=== PATIENT | male | born 1985 | race Caucasian/White ===

== ENCOUNTER 2019-10-15 14:47 | Emergency (ER) | payer SELFPAY ==
[2019-10-15 14:54] VITALS: BP 180/93
--- NOTE | 2019-10-15 15:04 | ER Document Report ---
HPI - HPI Time Seen by Provider: 10/15/19 14:59 Notes: 34-year-old male patient presents emergency department complaints of scalp laceration. Patient reports he was loading things into his vehicle when he closed the back nayak and it slammed into his head. He denies any loss of consciousness. Denies any nausea or vomiting. He reports this occurred just prior to arrival. He has not taken any medications. - ROS Systems Reviewed and Negative: Yes All other systems reviewed and negative - DERM Skin Problems: Laceration Past Medical History - General Information source: Patient - Social History Smoking Status: Never Smoker Frequency of alcohol use: None Drug Abuse: None Family History: Reviewed & Not Pertinent - Medical History Medical History: Negative Surgical Hx: Negative - Immunizations Immunizations up to date: Yes Vertical Provider Document - CONSTITUTIONAL Notes: PHYSICAL EXAMINATION: GENERAL: Well-appearing, well-nourished and in no acute distress. HEAD: Atraumatic, normocephalic. EYES: Pupils equal round extraocular movements intact, conjunctiva are normal. ENT: Nares patent NECK: Normal range of motion LUNGS: No respiratory distress Musculoskeletal: Normal range of motion NEUROLOGICAL: Normal speech, normal gait. PSYCH: Normal mood, normal affect. SKIN: 1 cm laceration to anterior right scalp. No active bleeding noted. Wound approximates well. Course - Re-evaluation Re-evalutation: Patient has no red flag signs for serious head injury. He has not had any nausea or vomiting. He has not passed out and his mental status is normal. His laceration was closed with edwar. He tolerated this well. He understands ED return precautions. Tdap up-to-date. - Vital Signs Vital signs: Temp Pulse Resp BP Pulse Ox 98.0 F 91 18 180/93 H 99 10/15/19 14:52 10/15/19 14:52 10/15/19 14:52 10/15/19 14:52 10/15/19 14:52 Procedures - Laceration/Wound Repair Scalp laceration Wound length (cm): 1 Wound's Depth, Shape: Superficial Wound Repaired With: Edwar - x2 Post-procedure NV exam normal: Yes Complications: No Discharge - Discharge Clinical Impression: Laceration of scalp Qualifiers: Encounter type: initial encounter Qualified Code(s): S01.01XA - Laceration without foreign body of scalp, initial encounter Condition: Stable Disposition: HOME, SELF-CARE Additional Instructions: You will need to have the edwar removed in 7 days. You may do this at your primary care provider's office or you may return to the emergency department. Please watch for serious signs of head injury to include projectile vomiting, altered mental status or you pass out. Please return if any of these occur.
== END 2019-10-15 15:12 | disposition home or self-care (01) ==
LOC: ER 14:47
PROC: 0HQ0XZZ Repair Scalp Skin, External Approach (ICD-10-PCS; principal; 2019-10-15)
DX: S01.01XA Laceration without foreign body of scalp, initial encounter (principal); W22.8XXA Striking against or struck by other objects, initial encounter
CPT/HCPCS: 99282

== ENCOUNTER 2020-02-18 12:35 | Emergency (ER) | payer MEDICAID ==
--- NOTE | 2020-02-18 13:24 | ER Document Report ---
ED Medical Screen (RME) - General Chief Complaint: Flank Pain Stated Complaint: FLANK PAIN Time Seen by Provider: 02/18/20 13:17 Mode of Arrival: Ambulatory Information source: Patient Notes: Patient is a 34-year-old male comes emergency room complaining of hematuria. Patient states about a 30 his morning when he went to urinate he noticed a pinkish color to his urine. He also has some onset of left flank pain and some left-sided abdominal discomfort. Patient states he got nauseated but did not vomit and he only ranks his pain about 2 out of 10 at this time. Patient denies any history of kidney stones in the past. No family history of kidney stones. Patient denies other medical problems currently takes no medications. Patient does admit to smoking. Physical examination shows him to be a well-nourished well-developed 34-year-old male who is in no apparent distress at examination. Cardiac: Heart rate is 80 bpm on monitor when auscultated no murmurs were found. Lungs: Bilateral breath sounds with breath sounds increased throughout no rhonchi rales or wheeze heard. Abdomen: In a sitting position patient displays some mild left-sided lower abdominal discomfort and some very mild left-sided flank pain to percussion. I have greeted and performed a rapid initial assessment of this patient. A comprehensive ED assessment and evaluation of the patient, analysis of test res ults and completion of the medical decision making process will be conducted by additional ED providers. Dictation of this chart was performed using voice recognition software; therefore, there may be some unintended grammatical errors. - Related Data Allergies/Adverse Reactions: No Known Allergies Allergy (Verified 02/18/20 13:16) Past Medical History - Immunizations Immunizations up to date: Yes Physical Exam - Vital signs Vitals: Temp Pulse Resp BP Pulse Ox 98.2 F 80 20 169/90 H 98 02/18/20 12:40 02/18/20 12:40 02/18/20 12:40 02/18/20 12:40 02/18/20 12:40 Course - Vital Signs Vital signs: Temp Pulse Resp BP Pulse Ox 98.2 F 80 20 169/90 H 98 02/18/20 12:40 02/18/20 12:40 02/18/20 12:40 02/18/20 12:40 02/18/20 12:40
[2020-02-18 13:47] LABS: ABSOLUTE EOSINOPHILS # (AUTO) 0.3 10^3/uL (0.0-0.6); ABSOLUTE LYMPHOCYTES (AUTO) 2.9 10^3/uL (0.5-4.7); ABSOLUTE MONOCYTES (AUTO) 0.8 10^3/uL (0.1-1.4); ABSOLUTE NEUT (AUTO) 7.2 10^3/uL (1.7-8.2); BASOPHILS % (AUTO) 0.3 % (0-2); EOSINOPHILS % (AUTO) 2.7 % (0-6); HEMATOCRIT 42.9 % (37.9-51.0); HEMOGLOBIN 14.5 g/dL (13.5-17.0); LYMPHOCYTES % (AUTO) 25.9 % (13-45); MEAN CORPUSCULAR HEMOGLOBIN 30.3 pg (27.0-33.4); MEAN CORPUSCULAR HGB CONC 33.8 g/dL (32.0-36.0); MEAN CORPUSCULAR VOLUME 90 fl (80-97); MONOCYTES % (AUTO) 7.3 % (3-13); PLATELET COUNT 203 10^3/uL (150-450); RED BLOOD COUNT 4.79 10^6/uL (4.35-5.55); RED CELL DISTRIBUTION WIDTH 12.5 % (11.5-14.0); SEGMENTED NEUTROPHILS % (AUTO) 63.8 % (42-78); TOTAL CELLS COUNTED % (AUTO) 100 %; WHITE BLOOD COUNT 11.3 10^3/uL (4.0-10.5)
[2020-02-18 14:00] LABS: APPEARANCE,URINE SLIGHTLY-CLOUDY; BILIRUBIN,URINE NEGATIVE (NEGATIVE); COLOR,URINE YELLOW; GLUCOSE, URINE NEGATIVE (NEGATIVE); KETONES,URINE NEGATIVE (NEGATIVE); LEUKOCYTE ESTERASE,URINE NEGATIVE (NEGATIVE); NITRITE,URINE NEGATIVE (NEGATIVE); PROTEIN,URINE 100 mg/dL (NEGATIVE); URINE SPECIFIC GRAVITY 1.029
[2020-02-18 14:03] LABS: ALBUMIN 4.3 g/dL (3.5-5.0); ALKALINE PHOSPHATASE 89 U/L (38-126); ANION GAP 6 (5-19); ASPARTATE AMINO TRANSFERASE 39 U/L (17-59); BILIRUBIN,DIRECT 0.2 mg/dL (0.0-0.4); BILIRUBIN,TOTAL 0.4 mg/dL (0.2-1.3); BLOOD UREA NITROGEN 16 mg/dL (7-20); CALCIUM 9.7 mg/dL (8.4-10.2); CARBON DIOXIDE 27 mmol/L (22-30); CHLORIDE 103 mmol/L (98-107); GLUCOSE 98 mg/dL (75-110); POTASSIUM 4.7 mmol/L (3.6-5.0); TOTAL PROTEIN 7.4 g/dL (6.3-8.2)
--- NOTE | 2020-02-18 14:19 | ER Document Report ---
ED General - General Chief Complaint: Flank Pain Stated Complaint: FLANK PAIN Time Seen by Provider: 02/18/20 13:17 Mode of Arrival: Ambulatory - HPI Notes: Chief complaint: Left flank pain History of present illness: 34-year-old male with no known prior history of renal stones states that he was at work this morning around 10 AM when he had sudden onset of severe left sided flank pain radiating into his left lower quadrant abdominal area associated with nausea and a single episode of emesis. Since then pain has subsided and is currently only about 2/10. Slight urinary urgency. He also noted a pinkish color to his urine. Patient currently does not have a primary care physician. He denies any prior history of any serious illnesses or major surgery. He takes no regular medications and has no known allergies. He smokes about a pack cigarettes per day. Consumes occasional social alcohol. - Related Data Allergies/Adverse Reactions: No Known Allergies Allergy (Verified 02/18/20 13:16) Past Medical History - General Information source: Patient - Social History Smoking Status: Current Every Day Smoker Frequency of alcohol use: Occasional Drug Abuse: None Lives with: Spouse/Significant other Family History: Reviewed & Not Pertinent - Medical History Medical History: Negative Past Surgical History: Reports: None - Immunizations Immunizations up to date: Yes Review of Systems - Review of Systems Notes: Constitutional: Negative for fever. HENT: Negative for sore throat. Eyes: Negative for visual changes. Cardiovascular: Negative for chest pain. Respiratory: Negative for shortness of breath. Gastrointestinal: As per HPI. Genitourinary: As per HPI. Musculoskeletal: Negative for back pain. Skin: Negative for rash. Neurological: Negative for headaches, weakness or numbness. 10 point ROS negative except as marked above and in HPI. Physical Exam - Vital signs Vitals: Temp Pulse Resp BP Pulse Ox 98.2 F 80 20 169/90 H 98 02/18/20 12:40 02/18/20 12:40 02/18/20 12:40 02/18/20 12:40 02/18/20 12:40 - Notes Notes: GENERAL: Well-developed well-nourished male approximately stated age appearing in no acute distress. SKIN: Good turgor no rashes. HEAD: Normocephalic atraumatic. EYES: PERRLA. EOMI. Conjunctivae and sclerae clear. EARS: CANALS AND TMS CLEAR. NOSE: CLEAR. MOUTH: Moist mucosa. Good dentition. No stridor or edema. No drooling. NECK: Supple. No masses or thyromegaly. No adenopathy. Carotids 2+ without bruits. No JVD. BACK: Symmetrical without tenderness. CHEST: Respirations unlabored. Breath sounds clear and symmetrical. HEART: Regular rhythm. No murmur gallop or rub. ABDOMEN: Soft nontender without masses, organomegaly or rebound. Bowel sounds normally active. No bruits. GENITALIA: Deferred. EXTREMITIES: No edema. No calf tenderness. Cap refill less than 1.5 seconds. Dorsalis pedis and posterior tibial pulses 3+ and symmetrical. NEUROLOGICAL: GCS 15. Alert and oriented x3. Normal gait. Fluent speech. Cranial nerves II through XII intact. Sensorimotor and cerebellar normal. Normal tone. PSYCHIATRIC: Appropriate affect. Course - Re-evaluation Re-evalutation: 02/18/20 15:27 Patient was found to have a 2 mm stone in the left ureter proximally near the UPJ. He was having minimal pain when he came in and received oral Percocet and Zofran. His urinalysis showed a few red cells and was otherwise unremarkable. His CBC and comprehensive metabolic profile were unremarkable. He appears very stable for outpatient follow-up. We talked about kidney stone disease at some length while he was in ED. Findings, clinical impression and plan of treatment have been discussed with patient/family. Understanding of current findings and recommendations has been acknowledged by them and there is agreement regarding disposition and follow-up. - Vital Signs Vital signs: Temp Pulse Resp BP Pulse Ox 98.2 F 80 20 169/90 H 98 02/18/20 12:40 02/18/20 12:40 02/18/20 12:40 02/18/20 12:40 02/18/20 12:40 - Laboratory Results Result Diagrams: 02/18/20 13:32 02/18/20 13:32 Laboratory Results Interpreted: 02/18/20 02/18/20 02/18/20 13:32 13:32 13:32 WBC 11.3 H Sodium 135.6 L Urine Protein 100 H Urine Blood LARGE H Urine Urobilinogen 2.0 H Critical Laboratory Results Reviewed: Yes Attending or Supervising Physician who Reviewed Labs: JIMENES,MAYELIN E - Radiology Results Radiology Results Interpreted: 02/18/20 15:26 Abdomen/Pelvis CT 02/18/20 14:02 IMPRESSION: 1. Obstructing 2 mm calculus at the proximal left ureter/ left ureteropelvic junction with mild left hydronephrosis. 2. Hepatic steatosis. 3. Small right adrenal nodule, incompletely characterized due to small size, but likely representing a benign lipid rich adenoma. Critical Radiology Results Reviewed: Yes Attending or Supervising Physician who Reviewed Radiology: MAYELIN JIMENES Discharge - Discharge Clinical Impression: Ureterolithiasis with renal colic left Condition: Stable Disposition: HOME, SELF-CARE Additional Instructions: Kidney Stone You are passing or have passed a kidney stone. These stones are usually due to increased calcium or uric acid concentrations in your urine. Stones within the kidney itself are not painful. The pain occurs as the stone leaves the kidney to pass down the long tube, called the ureter, leading to the bladder. If the stone is small, it will usually pass by itself. Most patients can pass the stone at home. You will usually receive medications for pain, nausea or vomiting, and sometimes a medication to assist in passing the kidney stone. However, if the pain is very severe or if vomiting prevents you from taking oral pain medications, you may need to return for further treatment. Drink three or four quarts of fluids per day. You will be given pain medication (if needed) and urine strainers. Strain all your urine to see if the stone passes. Filter your urine using a disposable coffee filter as instructed save the stone and take it with you when you go to see a urologist. If your doctor has asked you to bring the stone in for analysis, return with the stone once it has passed. Return if pain or vomiting become severe, if you develop a high fever, if you are unable to pass your urine, or if other unusual symptoms occur. Be provided a work note for the next 3 days. Take prescribed medications as directed. Return here as needed for new or worsening symptoms: Pain that is worsening or unimproved Uncontrolled vomiting High fever or shaking chills Overall worsening Prescriptions: Tamsulosin HCl [Flomax] 0.4 mg PO BID #20 capsule Ibuprofen [Motrin 600 mg Tablet] 600 mg PO TID 10 Days #30 tablet Oxycodone HCl/Acetaminophen [Percocet 5-325 mg Tablet] 1 tab PO Q6H PRN #15 tab PRN Reason: Ondansetron HCl [Zofran] 8 mg PO Q4H 3 Days #12 tablet Forms: Return to Work Referrals: FAITH NIELSEN MD [NO LOCAL MD] - Follow up as needed
--- NOTE | 2020-02-18 14:29 | RADIOLOGY REPORT (SQ) ---
EXAM DESCRIPTION: CT ABD/PELVIS NO ORAL OR IV IMAGES COMPLETED DATE/TIME: 02/18/2020 11:14 am REASON FOR STUDY: flank pain COMPARISON: None. TECHNIQUE: CT scan of the abdomen and pelvis performed without intravenous or oral contrast. Images reviewed with lung, soft tissue, and bone windows. Reconstructed coronal and sagittal MPR images revi ewed. All images stored on PACS. All CT scanners at this facility use dose modulation, iterative reconstruction, and/or weight based d osing when appropriate to reduce radiation dose to as low as reasonably achievable (ALARA). [facility]: Dose Right [facility]: CareDose [facility]: Dose Right [facility]: Teradose 4D [facility]: Smart Cashier Live RADIATION DOSE: DLP 951mGy. LIMITATIONS: Suboptimal evaluation of the vasculature and solid organs due to lack of IV contrast. FINDINGS: LOWER CHEST: Lung bases are clear. NON-CONTRASTED LIVER, SPLEEN, ADRENALS: Evaluation limited by lack of IV contrast. Small 1.4 cm hypo dense right adrenal nodule is incompletely characterized due to small size, but likely represents a b enign lipid rich adenoma. Diffuse decreased density of the liver with focal sparing adjacent to the gallbladder. PANCREAS: No masses. No peripancreatic inflammatory changes. GALLBLADDER: No identified stones by CT criteria. No inflammatory changes to suggest cholecystitis. RIGHT KIDNEY AND URETER: No suspicious masses. Assessment limited by lack of IV contrast. No signif icant calcifications. No hydronephrosis or hydroureter. LEFT KIDNEY AND URETER: 2 mm calculus in the proximal left ureter just beyond the left ureteropelvic junction. Mild left hydronephrosis. No suspicious renal mass identified given noncontrast techniqu e. AORTA AND RETROPERITONEUM: No aneurysm. No retroperitoneal masses or adenopathy. BOWEL AND PERITONEAL CAVITY: No obvious masses or inflammatory changes. No free fluid. APPENDIX: Normal. PELVIS, BLADDER, AND ABDOMINAL WALL:No abnormal masses. No free fluid. Bladder normal. Small fat con taining right inguinal hernia. BONES: No significant findings. OTHER: No other significant finding. IMPRESSION: 1. Obstructing 2 mm calculus at the proximal left ureter/ left ureteropelvic junction w ith mild left hydronephrosis. 2. Hepatic steatosis. 3. Small right adrenal nodule, incompletely characterized due to small size, but likely representing a benign lipid rich adenoma. COMMENT: Quality ID # [id number]: Final reports with documentation of one or more dose reduction techniques (e.g., Automated exposure control, adjustment of the mA and/or kV according to patient size, use of iterative reconstruction technique) TECHNICAL DOCUMENTATION: JOB ID: [id number] 2010 [employer]- All Rights Reserved Reading location - IP/workstation name: [email or web address]
[2020-02-18] MEDS ORDERED: ONDANSETRON HCL INJ/PF 4 MG/2 ML SDV IV ONE (15:24)
[2020-02-18] MEDS ORDERED: OXYCODONE-ACETAMINOPHEN 5-325 MG TABLET PO ONE (15:24)
[2020-02-18] MEDS ORDERED: ONDANSETRON 4 MG TAB.RAPDIS PO ONE (15:25)
[2020-02-18 16:03] VITALS: BP 148/92
== END 2020-02-18 16:02 | disposition home or self-care (01) ==
LOC: ER 12:35
DX: N13.2 Hydronephrosis with renal and ureteral calculous obstruction (principal); R10.9 Unspecified abdominal pain; F17.200 Nicotine dependence, unspecified, uncomplicated
CPT/HCPCS: 99284; 36415; 87086; 85025; 80053; 81001; 74176; S0119